=== PATIENT | female | born 1975 | race Caucasian/White ===

== ENCOUNTER → 2024-09-05 13:21 | Outpatient (REF) | payer BC, SELFPAY | LOC: WDC 13:21 | PROVIDERS: ATTENDING PHYSICIAN Student in an Organized Health Care Education/Training Program; FAMILY PHYSICIAN Nurse Practitioner Family | DX: Z12.31 Encounter for screening mammogram for malignant neoplasm of breast (principal) | CPT/HCPCS: 77063; 77067 ==

== ENCOUNTER → 2025-01-17 09:56 | Outpatient (REF) | payer BC, SELFPAY | LOC: WDC 09:56 | PROVIDERS: ATTENDING PHYSICIAN Student in an Organized Health Care Education/Training Program; FAMILY PHYSICIAN Nurse Practitioner Family | DX: R92.323 Mammographic fibroglandular density, bilateral breasts (principal) | CPT/HCPCS: 76641 ==